=== PATIENT | female | born 1965 | race African-American/Black ===

== ENCOUNTER → 2016-10-13 | Outpatient (CLI) | payer OTHER ==
--- NOTE | ~2016-10-13 | MY11 ---
[facility] A Service of [facility] / [facility] RADIOLOGY TEXT RESULTS PATIENT: HIPOLITO CHO LOCATION: [facility] : 63 UNIT #: [id number] AGE: [address]: YAIR GONSALEZ SEX: F ORDER DR: [id number] [facility] [address] [place], [place] [address] [id number] O MR#: [id number] Acc #: [id number] NAME: HIPOLITO CHO : 1965 SEX: F STUDY DATE/TIME: 10/13/2016 8:23 UNIT: [facility] ROOM: STUDY DESCRIPTION: MY Mammogram Screening Dig Quinten Attending Physician: Wood Cole Referring Physician: Wood Cole Ordering Physician: Wood Cole Primary Care Physician: Caitlyn Richardson M.D. MEDICAL IMAGING REPORT This report is preliminary unless electronic signature is present EXAM Digital screening mammogram, 10/13/2016, [facility]. HISTORY 51-year-old woman positive family history, sister age 50? Annual screen. COMPARISON 07/27/2009 06/23/2011 FINDINGS Digital imaging of each breast was completed utilizing a two-view examination of each breast in craniocaudal and mediolateral-oblique projections. Review and interpretation of digital mammograms include a second review in conjunction with FDA-approved CAD device. There is a normal parenchymal presentation bilaterally consistent with the patient's age. There are no breast masses imaged and no parenchymal asymmetry is visualized. There are no suspicious microcalcifications and I see no focal architectural disturbance. IMPRESSION Negative screening digital mammogram. One-year followup recommended. Patients over the age of 40 are entered into a reminder system with target due date for the next mammogram. A result letter will also be sent to the patient. BIRADS: 1 Negative Dictated by... Wiley Li M.D. [facility] A Service of [facility] / [facility] RADIOLOGY TEXT RESULTS PATIENT: HIPOLITO CHO LOCATION: [facility] : 63 UNIT #: [id number] AGE: [address]: YAIR GONSALEZ SEX: F ORDER DR: THIS IS AN ELECTRONICALLY VERIFIED REPORT Wiley Li M.D. at 10/13/2016 10:54 AM Judith TD: 10/13/2016 09:49 JOB #: [id number] MEDICAL IMAGING REPORT Page 1 of 1 COPY
== END | disposition home or self-care (01) ==
LOC: CWCC 08:00
DX: Z12.31 Encounter for screening mammogram for malignant neoplasm of breast (principal); Z80.3 Family history of malignant neoplasm of breast
CPT/HCPCS: G0202